=== PATIENT | male | born 2000 | race Caucasian/White ===

== ENCOUNTER 2023-11-20 20:23 | Emergency (ER) | payer OTHER ==
[~2023-11-20] VITALS: Ht 180.3 cm; Wt 85.0 kg
[2023-11-20 20:53] LABS: EOSINOPHILS 1.3 % (0-6); HEMOGLOBIN 16.2 g/dL (12.0-18.0); LYMPHOCYTES 20.1 % (24-44); MCV 91.6 fl (81-99); RDW 13.4 (10.5-15.0)
[2023-11-20 20:55] LABS: BASOPHILS 0.4 % (0-2); HEMATOCRIT 47.3 % (35.0-50.0); MCH 31.4 (27-36); MCHC 34.3 g/dl (30-36); MONOCYTES 12.3 % (0-12); NEUTROPHILS 65.9 % (39-80); PLATELET COUNT 187 K/uL (140-440); RBC 5.16 M/ul (4.3-5.7)
[2023-11-20] MEDS ORDERED: LACTATED RINGER'S 1,000 ML IV ONE (21:00)
[2023-11-20] MEDS ORDERED: ondansetron HCL 4 MG/2 ML VIAL IV ONE (21:00)
[2023-11-20 21:15] LABS: ACETAMINOPHEN 0 ug/mL (10-30); ALBUMIN 4.2 g/dL (3.4-5.0); ALCOHOL, MEDICAL <3 ng/dL (<3); ALKALINE PHOSPHATASE 124 U/L (46-116); ALT (SGPT) 32 U/L (14-59); ANION GAP 13.2 (7-21); AST (SGOT) 23 U/L (15-37); BILIRUBIN, TOTAL 3.1 ng/dL (0.2-1.0); BUN/CREATININE RATIO 12.87 (6.0-28.6); CALCIUM 8.7 mg/dL (8.5-10.1); CARBON DIOXIDE 27 mmol/L (21-32); CHLORIDE 101 mmol/L (98-107); CREATININE, SERUM 1.01 mg/dL (0.70-1.30); GLOMERULAR FILTRATION RATE,EST 107 mL/min (>60); POTASSIUM 3.2 mmol/L (3.5-5.1); PROTEIN, TOTAL 7.7 g/dL (6.4-8.2); TSH, 3RD GENERATION 1.009 uIU/mL (0.358-3.740); UREA NITROGEN 13 mg/dL (7-18)
[2023-11-20] MEDS ORDERED: FAMOTIDINE 20 MG/ 2 ML VIAL IV ONE (21:15)
[2023-11-20 21:17] LABS: SALICYLATE <0.2 mg/dL (2.8-20.0)
[2023-11-20 21:44] LABS: BILIRUBIN, URINE POSITIVE (negative); BLOOD/HGB, URINE NEGATIVE (Negative); KETONE, URINE TRACE (Negative); LEUK ESTERASE, URINE NEGATIVE (negative); NITRITE, URINE NEGATIVE (negative); PH, URINE 6.5 (5-7)
[2023-11-20 21:48] LABS: EPITHELIAL CELLS, URINE SQUAMOUS 1+ /lpf (0-1+)
[2023-11-20 21:49] LABS: BACTERIA, URINE RARE /hpf (negative); CRYSTALS, URINE NONE SEEN (0-1+); RED BLOOD CELLS, URINE 0-1 /hpf (0-5)
[2023-11-20 21:50] LABS: CASTS, URINE HYALINE 1+ \\lpf; COLLECTION TYPE, URINE CLEAN CATCH; REFLEX CULTURE, URINE No (No)
[2023-11-20 21:58] LABS: AMPHETAMINES, URINE NEGATIVE (NEGATIVE); BARBITURATES, URINE NEGATIVE (NEGATIVE); BENZODIAZEPINE, URINE NEGATIVE (NEGATIVE); BUPRENORPHINE, URINE NEGATIVE (NEGATIVE); CANNABINOID, URINE NEGATIVE (NEGATIVE); COCAINE, URINE NEGATIVE (NEGATIVE); ECSTASY, URINE NEGATIVE (NEGATIVE); FENTANYL, URINE NEGATIVE (NEGATIVE); METHADONE, URINE NEGATIVE (NEGATIVE); OPIATES, URINE NEGATIVE (NEGATIVE); OXYCODONE, URINE NEGATIVE (NEGATIVE); PHENCYCLIDINE, URINE NEGATIVE (NEGATIVE)
[2023-11-20 22:43] VITALS: BP 115/71
--- NOTE | 2023-11-21 12:58 | EKG ---
[facility] [address] [place], [place] [address] Signed Normal sinus rhythm Incomplete right bundle branch block Borderline ECG No previous ECGs available Confirmed by Margarette Chino ([id number]) on 11/21/2023 12:58:11 PM Electronically Signed By: MARGARETTE CHINO MD 11/21/23 1258 PATIENT NAME: JAN LERMA NELYANELISADRIEN Electrocardiogram DATE OF : [birth year] PHYSICIAN: MARGARETTE CHINO MD REPORT #: [id number] REPORT IS CONFIDENTIAL AND NOT TO BE RELEASED WITHOUT AUTHORIZATION
== END 2023-11-20 22:45 | disposition home or self-care (01) ==
LOC: ED 20:23
PROVIDERS: Internal Medicine
DX: R41.82 Altered mental status, unspecified (principal); T50.905A Adverse effect of unspecified drugs, medicaments and biological substances, initial encounter
CPT/HCPCS: 36415; 80053; 80307; 81001; 84443; 85025; 93005; 93010; 96374; 99284-25; G0480; J2405; J7121